=== PATIENT | male | born 1990 | race African-American/Black ===

== ENCOUNTER 2021-09-20 15:12 | Emergency (ER) | payer SELFPAY ==
[~2021-09-20] VITALS: Ht 180.3 cm; Wt 80.0 kg
[2021-09-20] MEDS ORDERED: HYDROCODONE/ACETAMINOPHEN 5/325MG TABLET PO ONE (16:00)
[2021-09-20] MEDS ORDERED: FLUORESCEIN SODIUM 1MG/STRIP LEFTEYE ONE (16:00)
[2021-09-20] MEDS ORDERED: TETRACAINE 0.5% OPHTH DROPS 4ML LEFTEYE ONE (16:00)
[2021-09-20] MEDS ORDERED: BACITRACIN ZINC OINT UDPKT TOP ONE (16:00)
[2021-09-20 16:26] VITALS: BP 139/79
[2021-09-20] MEDS ORDERED: HYDR-4001 MT (18:13)
== END 2021-09-20 19:05 | disposition home or self-care (01) ==
LOC: ER 15:12
DX: S01.112A Laceration without foreign body of left eyelid and periocular area, initial encounter (principal); S00.83XA Contusion of other part of head, initial encounter; S09.90XA Unspecified injury of head, initial encounter; I10 Essential (primary) hypertension; H57.12 Ocular pain, left eye; Z79.899 Other long term (current) drug therapy; Y04.0XXA Assault by unarmed brawl or fight, initial encounter; Y93.89 Activity, other specified; Y92.89 Other specified places as the place of occurrence of the external cause; Y99.8 Other external cause status
CPT/HCPCS: 12011; 70486; 99284

== ENCOUNTER 2024-04-16 12:38 | Inpatient (IN) | payer OTHER ==
[~2024-04-16] VITALS: Ht 172.7 cm; Wt 70.1 kg
[~2024-04-16 12:38] MED LIST: HYDR-4001 MT
[2024-04-16 13:14] LABS: BASOPHILS % 0.5 % (0.0-2.0); DIFFERENTIAL COMMENT 0; EOSINOPHILS % 4.8 % (0.0-5.0); HEMATOCRIT. 42.1 % (42.0-52.0); HEMOGLOBIN. 14.1 g/dL (14.0-18.0); MEAN CORPUSCULAR HEMOGLOBIN 34.1 pg (28.0-32.0); MEAN CORPUSCULAR HGB CONC 33.4 g/dL (31.0-37.0); MEAN PLATELET VOLUME 7.6 fl (7.4-10.4); MONOCYTES % 9.4 % (2.0-8.0); NEUTROPHILS % 62.3 % (40.0-76.0); PLATELET 318 x1000/uL (130-400); RED BLOOD CELL COUNT 4.13 mill/uL (4.7-6.1); RED CELL DISTRIBUTION WIDTH 13.3 % (11.6-14.6); WHITE BLOOD COUNT 5.6 x1000/uL (4.5-11.0)
[2024-04-16 13:22] LABS: CARBON DIOXIDE 27 mEq/L (21-32); CHLORIDE 105 mEq/L (98-107); POTASSIUM 3.8 mEq/L (3.5-5.1); SODIUM 137 mEq/L (136-145)
[2024-04-16 13:23] LABS: CALCIUM 9.5 mg/dL (8.7-10.4)
[2024-04-16] MEDS: ONDANSETRON HCL 4MG/2ML INJ IV STA (13:23)
[2024-04-16] MEDS: MORPHINE SULFATE 4 MG/ML INJ (FOR IV/IM USE) IV STA (13:23)
[2024-04-16] MEDS: HYDRALAZINE 20MG/ML VIAL IV ONE (13:23)
[2024-04-16] MEDS: SODIUM CHLORIDE 0.9% 1,000 ML IV ONE (13:23)
[2024-04-16 13:27] LABS: CREATININE 0.8 mg/dL (0.6-1.3); GLUCOSE 101 mg/dL (70-105)
[2024-04-16 13:28] LABS: TROPONIN I HIGH SENSITIVITY 35 ng/L (3.0-53)
[2024-04-16 13:29] LABS: ALANINE AMINOTRANSFERASE 100 IU/L (10-49); ASPARTATE AMINOTRANSFERASE 100 IU/L (<34)
[2024-04-16 13:30] LABS: ALBUMIN 4.4 g/dL (3.2-4.8); BILIRUBIN TOTAL 0.8 mg/dL (0.1-1.0); UREA NITROGEN BLOOD < 5 mg/dL (9-23)
[2024-04-16 13:39] LABS: INR 0.9; PARTIAL THROMBOPLASTIN TIME 27.3 sec (23.4-31.0); PROTHROMBIN TIME 10.4 sec (9.6-11.0)
[2024-04-16] MEDS: IOHEXOL-350 100 ML BOTTLE ONE (14:41)
[2024-04-16] MEDS ORDERED: ONDANSETRON HCL 4MG/2ML INJ IV STA (15:53)
[2024-04-16] MEDS ORDERED: MORPHINE SULFATE 4 MG/ML INJ (FOR IV/IM USE) IV STA (15:53)
[2024-04-16 16:59] LABS: TROPONIN I HIGH SENSITIVITY 26 ng/L (3.0-53)
[2024-04-16] MEDS: MORPHINE SULFATE 4 MG/ML INJ (FOR IV/IM USE) IV NR (17:51)
[2024-04-16] MEDS: ONDANSETRON HCL 4MG/2ML INJ IV NR (17:51)
[2024-04-16] MEDS: QUETIAPINE FUMARATE 50MG TABLET PO SCH (22:49)
[2024-04-16] MEDS: HYDROCODONE/ACETAMINOPHEN 5/325MG TABLET PO PRN (22:49)
[2024-04-16] MEDS ORDERED: NALOXONE HCL 0.4MG/ML VIAL IV PRN (23:00)
[2024-04-17] VITALS (7 sets, daily range): BP systolic 118–140; BP diastolic 67–98; PULSE 63–74; RESP 17–19; TEMP 97.8–98.9
[2024-04-17] MEDS ORDERED: FOLI0.4T6 MT (01:31)
[2024-04-17] MEDS ORDERED: QUET50TA MT (01:31)
[2024-04-17] MEDS ORDERED: MAGN400C MT (01:31)
[2024-04-17 08:35] LABS: BASOPHILS % 0.9 % (0.0-2.0); DIFFERENTIAL COMMENT 0; EOSINOPHILS % 6.1 % (0.0-5.0); HEMATOCRIT. 40.6 % (42.0-52.0); HEMOGLOBIN. 13.4 g/dL (14.0-18.0); LYMPHOCYTES % 35.4 % (20.0-50.0); MEAN CORPUSCULAR HEMOGLOBIN 33.7 pg (28.0-32.0); MEAN PLATELET VOLUME 7.4 fl (7.4-10.4); MONOCYTES % 9.6 % (2.0-8.0); PLATELET 313 x1000/uL (130-400); RED BLOOD CELL COUNT 3.98 mill/uL (4.7-6.1); RED CELL DISTRIBUTION WIDTH 13.2 % (11.6-14.6); WHITE BLOOD COUNT 5.1 x1000/uL (4.5-11.0)
[2024-04-17 08:40] LABS: CHLORIDE 105 mEq/L (98-107); POTASSIUM 3.7 mEq/L (3.5-5.1); SODIUM 139 mEq/L (136-145)
[2024-04-17 08:41] LABS: CARBON DIOXIDE 29 mEq/L (21-32)
[2024-04-17 08:46] LABS: CREATININE 0.8 mg/dL (0.6-1.3)
[2024-04-17 08:47] LABS: GLUCOSE 92 mg/dL (70-105)
[2024-04-17 08:49] LABS: UREA NITROGEN BLOOD < 5 mg/dL (9-23)
[2024-04-17] MEDS: AMLODIPINE 5MG TABLET PO SCH (09:15)
[2024-04-17] MEDS: LEVETIRACETAM 500MG TABLET PO SCH (09:15)
[2024-04-17] MEDS ORDERED: ONDANSETRON HCL 4MG/2ML INJ IV PRN (14:30)
[2024-04-17] MEDS: METOCLOPRAMIDE HCL 10MG/2ML VIAL IV SCH (18:18)
[2024-04-18] VITALS: BP 130/73; PULSE 67; RESP 17; TEMP 96
[2024-04-18 00:19] LABS: *AMPHETAMINES SCREEN URINE NEGATIVE (NEGATIVE); *BARBITURATES SCREEN URINE NEGATIVE (NEGATIVE); *BENZODIAZEPINES SCREEN URINE NEGATIVE (NEGATIVE); *COCAINE SCREEN URINE PRESUMPTIVE POSITIVE (NEGATIVE); CANNABINOID URINE SCREEN PRESUMPTIVE POSITIVE (NEGATIVE); ECSTASY MDMA SCREEN URINE NEGATIVE (NEGATIVE); METHADONE URINE SCREEN NEGATIVE (NEGATIVE); OPIATES URINE SCREEN PRESUMPTIVE POSITIVE (NEGATIVE); PHENCYCLIDINE URINE SCREEN NEGATIVE (NEGATIVE)
[2024-04-18 04:00] VITALS: BP 124/73; PULSE 62; RESP 19; TEMP 97.9
[2024-04-18 08:00] VITALS: BP 113/64; PULSE 64; RESP 16; TEMP 97.6
[2024-04-18 12:00] VITALS: BP 93/49; PULSE 69; RESP 19; TEMP 97
[2024-04-18 15:11] VITALS: BP 110/62; PULSE 69; TEMP 97.2; O2SAT 98
== END 2024-04-18 16:40 | disposition home or self-care (01) | DRG 384 ==
LOC: ER 12:38 → EDBEDREQ 17:06 → EDBEDREQTM 17:06 → 5WST 19:32 → 7EST 22:45
PROVIDERS: ADMIT Internal Medicine; ATTEND Internal Medicine
DX: S70.12XA Contusion of left thigh, initial encounter (principal); G40.909 Epilepsy, unspecified, not intractable, without status epilepticus; S80.12XA Contusion of left lower leg, initial encounter; I10 Essential (primary) hypertension; R94.31 Abnormal electrocardiogram [ECG] [EKG]; Z86.79 Personal history of other diseases of the circulatory system; Z79.899 Other long term (current) drug therapy; X58.XXXA Exposure to other specified factors, initial encounter; Y93.89 Activity, other specified; Y92.89 Other specified places as the place of occurrence of the external cause; Y99.8 Other external cause status
CPT/HCPCS: 36415; 71045; 71275; 75635; 80048; 80053; 80305; 83880; 84484; 85025; 86850; 86900; 93005; 93306; 93970; 97161; 99285; J0360; J2270; J2405; J2765; J7030; Q9967